=== PATIENT | male | born 1965 | race Caucasian/White ===

== ENCOUNTER → 2018-11-12 | Outpatient (CLI) | payer OTHER ==
--- NOTE | 2018-11-12 15:49 | REP ---
Clinical: Left shoulder pain. Technique: Internal rotation, external rotation, Y view of the left shoulder. Findings: Generalized age-related changes include subtle cortical irregularity at the acromioclavicular joint. Glenohumeral joint is intact and normal. No periarticular calcifications are appreciated. Impression: Generalized age-related changes. Electronically Signed by Bill Cazares MD 11/12/2018 03:40 P
== END ==
LOC: M WUC 14:28
PROVIDERS: ATTEND Physician Assistant
DX: M25.512 Pain in left shoulder (principal)

== ENCOUNTER → 2025-05-24 | Outpatient (REF) | payer OTHER ==
[~2025-05-24] MED LIST: DOXY100T PO; LEVO50TA5 PO; LEVO75TAB PO
[2025-05-25 09:25] LABS: IRON (FE) 70.0 UG/DL (65-175); PERCENT SATURATION 30.7 % (19.7-50.0)
== END ==
LOC: M LAB REF 08:59
PROVIDERS: ATTEND Physician Assistant Medical
DX: D64.9 Anemia, unspecified (principal)